=== PATIENT | female | born 1985 | race Caucasian/White ===

== ENCOUNTER 2017-06-22 10:16 | Emergency (ER) | payer OTHER, MEDICAID ==
[2017-06-22 11:05] VITALS: BP 111/75
--- NOTE | 2017-06-22 11:56 | UC ---
FLU HPI - HPI Summary HPI Summary: 5 days of fever cough and body aches - History of Current Complaint Chief Complaint: UCGeneralIllness Stated Complaint: FLU SYMPTOMS Time Seen by Provider: 06/22/17 11:45 Hx Obtained From: Patient Hx Last Menstrual Period: 06/02/17 ?: No Onset/Duration: Sudden Onset, Lasting Days - 5, Still Present Severity Currently: Moderate Severity Initially: Moderate Pain Intensity: 6 Pain Scale Used: 0-10 Numeric Associated Signs & Symptoms: Positive: Fever, Myalgia, Cough, Headache - Allergy/Home Medications Allergies/Adverse Reactions: Allergies Allergy/AdvReac Type Severity Reaction Status Date / Time No Known Allergies Allergy Verified 06/22/17 11:06 PMH/Surg Hx/FS Hx/Imm Hx Previously Healthy: No Psychological History: Bipolar Disorder Other History Of: Negative For: Anticoagulant Therapy - Surgical History Surgical History: Yes Surgery Procedure, Year, and Place: 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 No FHx of family schizophrenia. No FHx of mood disorders. No FHx of bipolar disorder. No FHx of anxiety disorder. No FHx of depression. No FHx of Family Depression. No FHx of alcohol abuse - Social History Occupation: Employed Full-time Lives: With Family Alcohol Use: Occasionally Substance Use Type: None Smoking Status (MU): Never Smoked Tobacco - Immunization History Most Recent Influenza Vaccination: Unknown Most Recent Tetanus Shot: Unsure Most Recent Pneumonia Vaccination: Never Review of Systems Constitutional: Fever, Chills, Fatigue Skin: Negative Eyes: Negative ENT: Ear Ache, Nasal Discharge Respiratory: Cough Cardiovascular: Negative Gastrointestinal: Negative Genitourinary: Negative Motor: Negative Neurovascular: Negative Musculoskeletal: Arthralgia, Myalgia Neurological: Negative Psychological: Negative Is Patient Immunocompromised?: No All Other Systems Reviewed And Are Negative: Yes Physical Exam Triage Information Reviewed: Yes Appearance: No Pain Distress, Well-Nourished, Ill-Appearing Vital Signs: Initial Vital Signs Temp 99.6 F 06/22/17 11:01 Pulse 90 06/22/17 11:01 Resp 18 06/22/17 11:01 BP 111/75 06/22/17 11:01 Pulse Ox 99 06/22/17 11:01 Vital Signs Reviewed: Yes Eye Exam: Normal Eyes: Positive: Conjunctiva Clear ENT Exam: Normal ENT: Positive: Normal ENT inspection, Hearing grossly normal, Pharynx normal, TMs normal, Uvula midline. Negative: Nasal congestion, Nasal drainage, Tonsillar swelling, Tonsillar exudate, Trismus, Muffled voice, Hoarse voice Dental Exam: Normal Neck exam: Normal Neck: Positive: Supple, Nontender, No Lymphadenopathy Respiratory Exam: Normal Respiratory: Positive: Chest non-tender, Lungs clear, Normal breath sounds, No respiratory distress, No accessory muscle use Cardiovascular Exam: Normal Cardiovascular: Positive: RRR, No Murmur, Pulses Normal, Brisk Capillary Refill Musculoskeletal Exam: Normal Musculoskeletal: Positive: Strength Intact, ROM Intact, No Edema Neurological Exam: Normal Neurological: Positive: Alert, Muscle Tone Normal Psychological Exam: Normal Skin Exam: Normal Diagnostics - Laboratory Diagnostic Studies Completed/Ordered: Influenza A(+), Influenza B(-), RST (-) Flu Course/Dx - Course Course Of Treatment: increase fluids, tylenol, ibuprofen robitussin and codiene for cough, return or follow with pcp prn - Differential Dx/Diagnosis Provider Diagnoses: Influenza A Discharge - Discharge Plan Condition: Stable Disposition: HOME Prescriptions: guaiFENesin/CODIEN 100MG-10MG* [Robitussin AC 100Mg-10Mg*] 5 - 10 ml PO Q4H PRN #120 udc MDD 40 PRN Reason: cough Patient Education Materials: Influenza (ED) Forms: *Work Release Referrals: Nadia Galdamez MD [Primary Care Provider] - If Needed
== END 2017-06-22 12:10 | disposition home or self-care (01) ==
LOC: UCEAST 10:16
DX: J10.1 Influenza due to other identified influenza virus with other respiratory manifestations (principal); F31.9 Bipolar disorder, unspecified
CPT/HCPCS: 87502; 87651; 99212; G0463

== ENCOUNTER 2018-01-08 13:58 | Emergency (ER) | payer OTHER, MEDICAID ==
[2018-01-08 14:12] VITALS: BP 118/78
--- NOTE | 2018-01-08 16:15 | UC ---
Complaint Female HPI - HPI Summary HPI Summary: Patient is an otherwise healthy 32-year-old female presenting to the with complaint of right-sided abdominal tenderness and urgency of urination 2 days. She has never had a UTI before. Denies any childbearing. She states this is never happened to her before. Denies any fevers, sweats, chills, nausea, vomiting. Denies any constipation or diarrhea. She states she has been feeling otherwise well. History of ovarian cyst on the ipsilateral side and history of ruptured ovarian cyst. She states pain is currently a 2/10 intermittent and not worse with positioning. She has not tried any medications for release. She relates this to be a UTI. Denies any suprapubic tenderness or burning with urination. Denies any frequency of urination. Denies any back pain. - History Of Current Complaint Chief Complaint: UCGU Stated Complaint: URINARY ISSUE RESP ISSUE Time Seen by Provider: 01/08/18 14:12 Hx Obtained From: Patient Hx Last Menstrual Period: 12/29/17 ?: No Onset/Duration: Sudden Onset Timing: Constant Severity Initially: Mild Severity Currently: Mild Pain Intensity: 7 Pain Scale Used: 0-10 Numeric Character: Dull Aggravating Factor(s): Nothing Alleviating Factor(s): Nothing Associated Signs And Symptoms: Negative: Fever, Back Pain, Vaginal Bleeding/ Discharge, Vaginal Discharge, Nausea - Risk Factors Ectopic Risk Factor: Negative Ovarian Torsion Risk Factor: Negative - Allergies/Home Medications Allergies/Adverse Reactions: Allergies Allergy/AdvReac Type Severity Reaction Status Date / Time No Known Allergies Allergy Verified 01/08/18 14:05 PMH/Surg Hx/FS Hx/Imm Hx Previously Healthy: Yes Other History Of: Negative For: Anticoagulant Therapy - Surgical History Surgical History: Yes Surgery Procedure, Year, and Place: 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 No FHx of family schizophrenia. No FHx of mood disorders. No FHx of bipolar disorder. No FHx of anxiety disorder. No FHx of depression. No FHx of Family Depression. No FHx of alcohol abuse - Social History Occupation: Employed Full-time Alcohol Use: Occasionally Substance Use Type: None Smoking Status (MU): Never Smoked Tobacco - Immunization History Most Recent Influenza Vaccination: Unknown Most Recent Tetanus Shot: Unsure Most Recent Pneumonia Vaccination: Never Review of Systems Constitutional: Negative Skin: Negative Respiratory: Negative Cardiovascular: Negative Gastrointestinal: Abdominal Pain - RLQ Genitourinary: Urgency Motor: Negative Neurovascular: Negative Neurological: Negative Is Patient Immunocompromised?: No All Other Systems Reviewed And Are Negative: Yes Physical Exam Triage Information Reviewed: Yes Appearance: Well-Appearing, Well-Nourished Vital Signs: Initial Vital Signs Temp 98.5 F 01/08/18 14:07 Pulse 80 01/08/18 14:07 Resp 16 01/08/18 14:07 BP 118/78 01/08/18 14:07 Pulse Ox 99 01/08/18 14:07 Vital Signs Reviewed: Yes Eye Exam: Normal Eyes: Positive: Conjunctiva Clear Neck exam: Normal Neck: Positive: Supple Respiratory Exam: Normal Respiratory: Positive: Chest non-tender Cardiovascular Exam: Normal Cardiovascular: Positive: RRR Abdomen Description: Positive: Other: - RLQ pain on deep palpation only Musculoskeletal Exam: Normal Musculoskeletal: Positive: Strength Intact Psychological Exam: Normal Psychological: Positive: Normal Response To Family Skin Exam: Normal Complaint Female Dx - Course Course Of Treatment: During the course of treatment, the patient is evaluated for right-sided abdominal tenderness. Denies any fevers, sweats, chills. On physical examination, negative Rovsing sign. No tenderness over McBurney's point on light palpation, however deep palpation presents slight tenderness. Denies any nausea or vomiting. Discussed at length with the patient symptoms of appendicitis versus ruptured ovarian cyst. We'll she has had an ovarian cyst to the right side, I do not believe this to be an ectopic as patient has had her menses 3 days ago and she is non-severe pain. Also symptoms have remained for 2 days. I do not believe this to be a ruptured ovarian cyst due to the 2 out of 10 pain scale which has remained constant. 2 bouts of near incontinence with urgency is possibly positive for weak abdominal muscles without week pelvic floor muscles. UA obtained which is negative for leukocytes and WBCs. Negative for rbc's. She will go to the ED if she develops fevers, sweats, chills, worsening right-sided lower quadrant pain. She 'll follow-up with her [employer] next week regarding her ovarian cyst as well as any concerns for urgency of urination. - Differential Dx/Diagnosis Differential Diagnosis/HQI/PQRI: Ectopic, Ovarian Cyst, Ovarian Torsion, Renal Colic, Tubo-ovarian Abscess, Urinary Tract Infection Provider Diagnoses: Right lower quadrant pain Discharge - Sign-Out/Discharge Documenting (check all that apply): Patient Departure All imaging exams completed and their final reports reviewed: No Studies - Discharge Plan Condition: Stable Disposition: HOME Referrals: Nadia Galdamez MD [Primary Care Provider] - Additional Instructions: Himalayan salt lamp or screen protector Please go to the ED if you develop any fevers or worsening RLQ pain Please follow up with your OBGYN Moist heat over the area will help with discomfort Ibuprofen 600mg three times daily x 2-3 days will also help with discomfort - Billing Disposition and Condition Condition: STABLE Disposition: Home
== END 2018-01-08 14:35 | disposition home or self-care (01) ==
LOC: UCEAST 13:58
DX: R10.31 Right lower quadrant pain (principal); R39.15 Urgency of urination
CPT/HCPCS: 81003; 99211; G0463

== ENCOUNTER 2018-01-20 23:22 | Emergency (ER) | payer OTHER, MEDICAID ==
--- NOTE | 2018-01-21 00:18 | ED ---
Psychiatric Complaint - HPI Summary HPI Summary: 32 year old F presenting to [facility] complains of intermittent anxiety attacks since two days ago. Symptoms aggravated by nothing. Symptoms alleviated by nothing. Patient reports insomnia x6 days. She denies auditory hallucinations, SI/HI, and paranoia. - History Of Current Complaint Chief Complaint: EDMentalHealth Time Seen by Provider: 01/21/18 00:00 Hx Obtained From: Patient Hx Last Menstrual Period: 12/29/17 Onset/Duration: Lasting Days - 2, Still Present Timing: Intermittent Episode Lasting Aggravating Factor(s): Nothing Alleviating Factor(s): Nothing Has Suicidal: Denies: Thoughts Has Homicidal: Denies: Thoughts - Allergies/Home Medications Allergies/Adverse Reactions: Allergies Allergy/AdvReac Type Severity Reaction Status Date / Time No Known Allergies Allergy Verified 01/08/18 14:05 PMH/Surg Hx/FS Hx/Imm Hx Previously Healthy: No Endocrine/Hematology History: Denies: Hx Anticoagulant Therapy, Hx Diabetes, Hx Thyroid Disease Cardiovascular History: Denies: Hx Hypertension Respiratory History: Denies: Hx Asthma, Hx Chronic Obstructive Pulmonary Disease (COPD) GI History: Denies: Hx Ulcer Musculoskeletal History: Denies: Hx Arthritis Neurological History: Reports: Hx Migraine Denies: Hx Dementia, Hx Developmental Delay, Hx Headaches, Hx Seizures, Hx Spinal Cord Injury, Hx Transient Ischemic Attacks (TIA), Other Neuro Impairments /Disorders Psychiatric History: Reports: Hx Depression, Hx Post Traumatic Stress Disorder, Hx Inpatient Treatment, Hx Community Mental Health Tx, Hx Bipolar Disorder, Hx Suicide Attempt, Hx of Violent Episodes Against Others Denies: Hx Anxiety, Hx Attention Deficit Hyperactivity Disorder, Hx Eating Disorder, Hx Panic Disorder, Hx Schizophrenia, Hx Substance Abuse, Other Psychiatric Issues/Disorders - Cancer History Cancer Type, Location and Year: tumor removed R breast benign Hx Chemotherapy: No Hx Radiation Therapy: No - Surgical History Surgery Procedure, Year, and Place: Tumor removed from right breast - benign- 2011 Hx Anesthesia Reactions: No - Immunization History Date of Tetanus Vaccine: unknown Infectious Disease History: No Infectious Disease History: Denies: Hx Clostridium Difficile, Hx Hepatitis, Hx Human Immunodeficiency Virus (HIV), Hx of Known/Suspected MRSA, Hx Shingles, Hx Tuberculosis, Hx Known/ Suspected VRE, Hx Known/Suspected VRSA, History Other Infectious Disease, Traveled Outside the [place] in Last 30 Days - Family History Known Family History: Negative: Hypertension Family History: FHx of family psychotic disorders. No FHx of family schizophrenia. No FHx of mood disorders. No FHx of bipolar disorder. No FHx of anxiety disorder. No FHx of depression. No FHx of Family Depression. No FHx of alcohol abuse - Social History Alcohol Use: Occasionally Hx Substance Use: No Substance Use Type: Reports: None Hx Tobacco Use: No Smoking Status (MU): Never Smoked Tobacco Review of Systems Positive: Other - anxiety attacks, insomnia; NEGATIVE: auditory hallucinations, SI/HI, paranoia All Other Systems Reviewed And Are Negative: Yes Physical Exam - Summary Physical Exam Summary: VITAL SIGNS: Reviewed. GENERAL: Patient is a well-developed and nourished female who is lying comfortable in the stretcher. Patient is not in any acute respiratory distress. HEAD AND FACE: No signs of trauma. No ecchymosis, hematomas or skull depressions. No sinus tenderness. EYES: PERRLA, EOMI x 2, No injected conjunctiva, no nystagmus. EARS: Hearing grossly intact. Ear canals and tympanic membranes are within normal limits. MOUTH: Oropharynx within normal limits. NECK: Supple, trachea is midline, no adenopathy, no JVD, no carotid bruit, no c- spine tenderness, neck with full ROM. CHEST: Symmetric, no tenderness at palpation LUNGS: Clear to auscultation bilaterally. No wheezing or crackles. CVS: Regular rate and rhythm, S1 and S2 present, no murmurs or gallops appreciated. ABDOMEN: Soft, non-tender. No signs of distention. No rebound no guarding, and no masses palpated. Bowel sounds are normal. EXTREMITIES: FROM in all major joints, no edema, no cyanosis or clubbing. NEURO: Alert and oriented x 3. No acute neurological deficits. Speech is normal and follows commands. SKIN: Dry and warm PSYCH: patient is anxious. she denies HI/SI Triage Information Reviewed: Yes Vital Signs On Initial Exam: Initial Vitals Temp Pulse Resp BP Pulse Ox 98.2 F 82 16 152/82 99 01/20/18 23:25 01/20/18 23:25 01/20/18 23:25 01/20/18 23:25 01/20/18 23:25 Vital Signs Reviewed: Yes Diagnostics - Vital Signs Vital Signs Temp Pulse Resp BP Pulse Ox 09/08/18 23:25 98.2 F 82 16 152/82 99 - Laboratory Result Diagrams: 01/21/18 00:23 01/21/18 00:23 Lab Statement: Any lab studies that have been ordered have been reviewed, and results considered in the medical decision making process. Course/Dx - Course Course Of Treatment: 32 year old F presenting to [facility] complains of intermittent anxiety attacks since two days ago. Patient will be signed out to Dr. Tubbs, awaiting MHE, pending dispo. - Differential Dx/Clinical Impression Provider Diagnosis: Manic behavior Discharge - Sign-Out/Discharge Documenting (check all that apply): Sign-Out Patient Signing out patient TO: Robert Tubbs - awaiting MHE, pending dispo. - Discharge Plan Condition: Stable Disposition: HOME Referrals: Nadia Galdamez MD [Primary Care Provider] - - Billing Disposition and Condition Condition: STABLE Disposition: Home - Attestation Statements Document Initiated by Scribe: Yes Documenting Scribe: Brenda Whitaker Provider For Whom Scribe is Documenting (Include Credential): Deon Powell MD Scribe Attestation: Brenda Watts, scribed for Deon Powell MD on 02/09/18 at 1126. Scribe Documentation Reviewed: Yes Provider Attestation: The documentation as recorded by the Brenda ocasio accurately reflects the service I personally performed and the decisions made by Tish johnson MD
[2018-01-21 00:29] LABS: ABS Basophils 0 10^3/ul (0-0.2); ABS Eosinophils 0.3 10^3/ul (0-0.6); ABS Monocytes 0.9 10^3/ul (0-0.8); ABS Neutrophils 7.1 10^3/ul (1.5-7.7); ABS Nucleated RBC 0 10^3/ul; Eosinophil % 2.6 % (0-6); Hematocrit 36 % (35-47); Hemoglobin 12.6 g/dl (12.0-16.0); Lymphocyte % 19.9 % (25-47); Mean Corpuscular HGB Conc 35 g/dl (31-36); Mean Corpuscular Hemoglobin 29 pg (27-31); Mean Corpuscular Volume 83 fL (80-97); Mean Platelet Volume 7.7 um3 (7.4-10.4); Nucleated Red Blood Cells % 0; Platelet Count 267 10^3/ul (150-450); Red Blood Count 4.32 10^6/ul (4.00-5.40); Red Cell Distribution Width 13 % (10.5-15); White Blood Count 10.3 10^3/ul (3.5-10.8)
[2018-01-21 00:47] LABS: EGFR Non-African American 84.5 (>60)
[2018-01-21 00:52] LABS: Lithium 0.93 mmol/L (0.6-1.2)
[2018-01-21 01:48] LABS: Urine Appearance Clear; Urine Blood Negative (Negative); Urine Color Colorless; Urine Ketones Negative (Negative); Urine Protein Negative (Negative); Urine Urobilinogen Negative (Negative)
[2018-01-21 09:49] LABS: Urine Appearance Clear; Urine Blood Negative (Negative); Urine Color Colorless; Urine Ketones Trace (Negative); Urine Protein Negative (Negative); Urine Specific Gravity 1.001 (1.010-1.030); Urine Urobilinogen Negative (Negative)
[2018-01-21 13:00] VITALS: BP 152/82
--- NOTE | 2018-01-21 18:37 | ED ---
Progress - Progress Note Progress Note: The patient was signed out from Dr. Powell on shift change awaiting MHE. After the MHE by Dr. Davey the patient was deemed stabled to be discharged home. The patient will discharged by mental health and f/u and F & C services. - Consult/PCP Time Called: 03:00 Course/Dx - Diagnoses Provider Diagnoses: Manic behavior Discharge - Sign-Out/Discharge Documenting (check all that apply): Patient Departure, Receiving Sign-Out Receiving patient FROM: Deon Powell - Discharge Plan Condition: Stable Disposition: HOME Referrals: Nadia Galdamez MD [Primary Care Provider] - - Billing Disposition and Condition Condition: STABLE Disposition: Home - Attestation Statements Document Initiated by Scribe: Yes Documenting Scribe: Javon Roman Provider For Whom Greg is Documenting (Include Credential): Robert Tubbs MD Scribe Attestation: Javon Watts , scribed for Robert Tubbs MD on 01/21/18 at 1921. Scribe Documentation Reviewed: Yes Provider Attestation: The documentation as recorded by the Javon ocasio accurately reflects the service I personally performed and the decisions made by me, Robert Tubbs MD
== END 2018-01-21 11:00 | disposition home or self-care (01) ==
LOC: ED 23:22
DX: F30.9 Manic episode, unspecified (principal)
CPT/HCPCS: 36415; 80053; 80178; 80307; 80320; 80329; 81003; 84443; 84702; 85025; 99284; G0480

== ENCOUNTER 2018-09-28 15:12 | Emergency (ER) | payer OTHER, MEDICAID ==
[2018-09-28 15:24] VITALS: BP 119/77
--- NOTE | 2018-09-28 15:44 | UC ---
Headache HPI - HPI Summary HPI Summary: 33-year-old female with a history of bipolar disorder, migraine headaches presents with headache and blurred vision that began this morning. The headache is much better now but she is very anxious given that she is 13 weeks . She has concerns that she could possibly have preeclampsia. She does have good follow-up with Dr. Dye her [employer]. She denies any history of elevated blood pressure or lower extremity edema. She has no symptoms at present. She is at age 33 with a due date of April 05. Her last menstrual period was June 29. - History Of Current Complaint Chief Complaint: UCHeadache Stated Complaint: HEADACHE Time Seen by Provider: 09/28/18 15:16 Hx Obtained From: Patient, Family/Supervisor Dried Yeast Hx Last Menstrual Period: 13 weeks ago Pain Intensity: 5 - Allergies/Home Medications Allergies/Adverse Reactions: Allergies Allergy/AdvReac Type Severity Reaction Status Date / Time No Known Allergies Allergy Verified 09/28/18 15:17 Home Medications: Home Medications Lurasidone(*) [Latuda] 40 mg PO DAILY 09/28/18 [History Confirmed 09/28/18] PMH/Surg Hx/FS Hx/Imm Hx Psychological History: Anxiety, Bipolar Disorder Other History Of: Negative For: Anticoagulant Therapy - Surgical History Surgical History: Yes Surgery Procedure, Year, and Place: 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 No FHx of family schizophrenia. No FHx of mood disorders. No FHx of bipolar disorder. No FHx of anxiety disorder. No FHx of depression. No FHx of Family Depression. No FHx of alcohol abuse - Social History Occupation: Unemployed Lives: With Family Alcohol Use: None Substance Use Type: None Smoking Status (MU): Never Smoked Tobacco - Immunization History Most Recent Influenza Vaccination: Unknown Most Recent Tetanus Shot: Unsure Most Recent Pneumonia Vaccination: Never Review of Systems All Other Systems Reviewed And Are Negative: Yes Constitutional: Negative: Fever Skin: Negative: Rash Eyes: Positive: Blurred Vision. Negative: Diplopia ENT: Positive: Negative Respiratory: Positive: Negative Cardiovascular: Positive: Negative Gastrointestinal: Negative: Abdominal Pain, Vomiting, Nausea Musculoskeletal: Negative: Edema Neurological: Positive: Headache Physical Exam Triage Information Reviewed: Yes Appearance: Well-Appearing, No Pain Distress Vital Signs: Initial Vital Signs Temp 98.5 F 09/28/18 15:18 Pulse 104 09/28/18 15:18 Resp 18 09/28/18 15:18 BP 119/77 09/28/18 15:18 Pulse Ox 98 09/28/18 15:18 Vital Signs Reviewed: Yes Eyes: Positive: Conjunctiva Clear, Other: - Pupils equal round and reactive, globes are soft, temporal arteries are nontender ENT: Positive: Normal ENT inspection Neck: Positive: Supple, Nontender Respiratory: Positive: Lungs clear Cardiovascular: Positive: RRR Abdomen Description: Positive: Nontender, Other: - Appears slightly gravid without palpable fundus Musculoskeletal: Positive: No Edema Neurological Exam: Normal Psychological Exam: Normal Headache Course/Dx - Course Course Of Treatment: Patient is well-appearing with a history of migraine headaches. She is still on her bipolar medication including lithium at the recommendations of her doctors. She is off her Klonopin. She was given hydroxyzine to use as needed for anxiety and prescribed promethazine as needed for headaches. - Differential Dx/Diagnosis Provider Diagnosis: Second trimester , Migraine headache without aura, Anxiety disorder Discharge - Sign-Out/Discharge Documenting (check all that apply): Patient Departure All imaging exams completed and their final reports reviewed: No Studies - Discharge Plan Condition: Improved Disposition: HOME Prescriptions: hydrOXYzine HCL TAB* [Atarax 25 MG TAB*] 25 mg PO TID PRN #30 tab PRN Reason: anxiety/headache Promethazine TAB* [Phenergan Tab*] 25 mg PO Q8H PRN #20 tab PRN Reason: headache/nausea Patient Education Materials: Migraine Headache (ED), Anxiety (ED) Referrals: Nadia Galdamez MD [Primary Care Provider] - Cody Dey MD [Medical Doctor] - Additional Instructions: Follow-up with your [employer] -- they will do monitoring at regular intervals to ensure that he did not have preeclampsia. The prescribed medication promethazine can be taken along with the other prescribed medication hydroxyzine if headaches are severe. Also good hydration with water and caffeine may help headaches. Hydroxyzine alone can be used for anxiety. Return if worse, new symptoms or other concerns. - Billing Disposition and Condition Condition: IMPROVED Disposition: Home
== END 2018-09-28 15:40 | disposition home or self-care (01) ==
LOC: UCEAST 15:12
DX: O26.892 Other specified pregnancy related conditions, second trimester (principal); G43.009 Migraine without aura, not intractable, without status migrainosus; F41.9 Anxiety disorder, unspecified; Z3A.13 13 weeks gestation of pregnancy; F31.9 Bipolar disorder, unspecified
CPT/HCPCS: 99212; G0463

== ENCOUNTER 2018-12-02 12:14 | Emergency (ER) | payer OTHER, MEDICAID ==
[2018-12-02 12:22] VITALS: BP 106/68
--- NOTE | 2018-12-02 12:42 | UC ---
Skin Complaint HPI - HPI Summary HPI Summary: pain swelling redness-medial aspect posterior right lower leg near knee- swelling in right lower leg-teder above and below area--is - History of Current Complaint Chief Complaint: UCRash Time Seen by Provider: 12/02/18 12:20 Stated Complaint: RASH BEHIND RT KNEE Hx Obtained From: Patient Hx Last Menstrual Period: 13 weeks ago ?: No Onset/Duration: Sudden Onset, Lasting Days, Worse Since - past 24 hours Pain Intensity: 7 Pain Scale Used: 0-10 Numeric Location: Discrete Character: Pain, Redness Aggravating Factor(s): Nothing Alleviating Factor(s): Nothing Associated Signs & Symptoms: Positive: Negative - Allergy/Home Medications Allergies/Adverse Reactions: Allergies Allergy/AdvReac Type Severity Reaction Status Date / Time No Known Allergies Allergy Verified 12/02/18 12:22 PMH/Surg Hx/FS Hx/Imm Hx Previously Healthy: No Psychological History: Bipolar Disorder Other History Of: Negative For: Anticoagulant Therapy - Surgical History Surgical History: Yes Surgery Procedure, Year, and Place: 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 No FHx of family schizophrenia. No FHx of mood disorders. No FHx of bipolar disorder. No FHx of anxiety disorder. No FHx of depression. No FHx of Family Depression. No FHx of alcohol abuse - Social History Occupation: Employed Full-time Lives: With Family Alcohol Use: None Substance Use Type: None Smoking Status (MU): Never Smoked Tobacco - Immunization History Most Recent Influenza Vaccination: Unknown Most Recent Tetanus Shot: Unsure Most Recent Pneumonia Vaccination: Never Review of Systems All Other Systems Reviewed And Are Negative: Yes Constitutional: Positive: Negative Skin: Positive: Other - erythema right lower leg Eyes: Positive: Negative ENT: Positive: Negative Respiratory: Positive: Negative Cardiovascular: Positive: Negative Gastrointestinal: Positive: Negative Genitourinary: Positive: Negative Motor: Positive: Negative Neurovascular: Positive: Negative Musculoskeletal: Positive: Negative Neurological: Positive: Negative Psychological: Positive: Negative Is Patient Immunocompromised?: No Physical Exam Triage Information Reviewed: Yes Appearance: Well-Appearing, No Pain Distress, Well-Nourished Vital Signs: Initial Vital Signs Temp 98 F 12/02/18 12:19 Pulse 75 12/02/18 12:19 Resp 17 12/02/18 12:19 BP 106/68 12/02/18 12:19 Pulse Ox 100 12/02/18 12:19 Vital Signs Reviewed: No Eye Exam: Normal Eyes: Positive: Conjunctiva Clear ENT Exam: Normal ENT: Positive: Normal ENT inspection, Hearing grossly normal. Negative: Trismus , Muffled voice, Hoarse voice Neck exam: Normal Neck: Positive: Supple, Nontender, No Lymphadenopathy Respiratory Exam: Normal Respiratory: Positive: Chest non-tender, No respiratory distress, No accessory muscle use Cardiovascular Exam: Normal Cardiovascular: Positive: RRR, Pulses Normal, Brisk Capillary Refill Musculoskeletal Exam: Normal Musculoskeletal: Positive: Strength Intact, ROM Intact, Edema @ - right lower leg Neurological Exam: Normal Neurological: Positive: Alert, Muscle Tone Normal Psychological Exam: Normal Skin Exam: Other Skin: Positive: Other - large erthemic tender area back of right knee/lower leg- --some swelling began last night right foot Course/Dx - Course Course Of Treatment: discussed likely differentials with client Lyme, cellulitis, local rx to insect bite,thrombophlebitis--agreed to go to ED for US of lower leg to r/o DVT possibility - Diagnoses Provider Diagnosis: Right leg pain Discharge - Sign-Out/Discharge Documenting (check all that apply): Patient Departure All imaging exams completed and their final reports reviewed: No Studies - Discharge Plan Condition: Stable Disposition: HOME-RECOMMEND TO ED Patient Education Materials: Leg Edema (ED) Referrals: Nadia Galdamez MD [Primary Care Provider] - If Needed - Billing Disposition and Condition Condition: STABLE Disposition: Home-Recommend to ED
== END 2018-12-02 12:50 | disposition home health service (06) ==
LOC: UCEAST 12:14
DX: O26.899 Other specified pregnancy related conditions, unspecified trimester (principal); M79.604 Pain in right leg; Z3A.00 Weeks of gestation of pregnancy not specified
CPT/HCPCS: 99212; G0463

== ENCOUNTER → 2018-12-02 13:43 | Emergency (ER) | payer OTHER, MEDICAID ==
[~2018-12-02 13:43] MED LIST: predniSONE TAB* 10 MG PO ONE
--- NOTE | 2018-12-02 17:17 | ED ---
Skin Complaint - HPI Summary HPI Summary: Pt is a 33 y/o F presenting to the ED with a chief complaint of a rash on the back of her R knee first onset a couple of days ago. She states it was pruritic , erythematous, and the area developed blisters with purulence. She put Neosporin and Hydrocortisone on it, which seemed to help initially, but it is now worse. She went to who sent her here to r/o blood clot. She denies CP, SOB, vaginal bleeding, or discharge. She notes that she had a tick bite a couple of months ago on her L inner thigh, but it resolved without forming a bullseye. The pt is currently 22 weeks . Vital signs while in room: BP 127/85, HR 74bpm, SaO2 99% on room air. Home Medications Medication Instructions Recorded Confirmed Type Acetaminophen [Tylenol Extra 500 mg PO Q6H PRN 12/02/18 12/02/18 History Strength] [place] Carbonate ER (NF) 900 mg PO BEDTIME 12/02/18 12/02/18 History Lurasidone(*) [Latuda] 40 mg PO BEDTIME 12/02/18 12/02/18 History Pnv No.95/Ferrous Fum/Folic AC 1 tab PO DAILY 12/02/18 12/02/18 History [ Vitamin/Iron 28-0.8 mg] - History of Current Complaint Chief Complaint: EDRashSkinAbscess Time Seen by Provider: 12/02/18 16:31 Stated Complaint: POSS SPIDER BITE 22 WKS PREG PER PT Hx Obtained From: Patient Hx Last Menstrual Period: 13 weeks ago Onset/Duration: Started Days Ago, Still Present Skin Exposure Onset/Duration: Days Ago Timing: Constant, Lasting Days Onset Severity: Moderate Current Severity: Severe Pain Intensity: 7 Pain Scale Used: 0-10 Numeric Skin Location: Leg Character: Pruritus, Redness, Raised, Painful Aggravating Symptom(s): Touch Alleviating Symptom(s): Nothing Associated Signs & Symptoms: Rash Related History: Insect Bite/Sting - Additional Pertinent History Primary Care Physician: SUREKHA - Allergy/Home Medications Allergies/Adverse Reactions: Allergies Allergy/AdvReac Type Severity Reaction Status Date / Time No Known Allergies Allergy Verified 12/02/18 13:49 Home Medications: Home Medications Acetaminophen [Tylenol Extra Strength] 500 mg PO Q6H PRN 12/02/18 [History Confirmed 12/02/18] [place] Carbonate ER (NF) 900 mg PO BEDTIME 12/02/18 [History Confirmed 12/02/18 ] Lurasidone(*) [Latuda] 40 mg PO BEDTIME 12/02/18 [History Confirmed 12/02/18] Pnv No.95/Ferrous Fum/Folic AC [ Vitamin/Iron 28-0.8 mg] 1 tab PO DAILY 12/02/18 [History Confirmed 12/02/18] PMH/Surg Hx/FS Hx/Imm Hx Previously Healthy: Yes Endocrine/Hematology History: Denies: Hx Anticoagulant Therapy, Hx Diabetes, Hx Thyroid Disease Cardiovascular History: Denies: Hx Hypertension Respiratory History: Denies: Hx Asthma, Hx Chronic Obstructive Pulmonary Disease (COPD) GI History: Denies: Hx Ulcer Musculoskeletal History: Denies: Hx Arthritis Neurological History: Reports: Hx Migraine Denies: Hx Dementia, Hx Developmental Delay, Hx Headaches, Hx Seizures, Hx Spinal Cord Injury, Hx Transient Ischemic Attacks (TIA), Other Neuro Impairments /Disorders Psychiatric History: Reports: Hx Depression, Hx Post Traumatic Stress Disorder, Hx Inpatient Treatment, Hx Community Mental Health Tx, Hx Bipolar Disorder, Hx Suicide Attempt, Hx of Violent Episodes Against Others Denies: Hx Anxiety, Hx Attention Deficit Hyperactivity Disorder, Hx Eating Disorder, Hx Panic Disorder, Hx Schizophrenia, Hx Substance Abuse, Other Psychiatric Issues/Disorders - Cancer History Cancer Type, Location and Year: tumor removed R breast benign Hx Chemotherapy: No Hx Radiation Therapy: No - Surgical History Surgery Procedure, Year, and Place: Tumor removed from right breast - benign- 2012 Hx Anesthesia Reactions: No - Immunization History Date of Tetanus Vaccine: unknown Infectious Disease History: No Infectious Disease History: Denies: Hx Clostridium Difficile, Hx Hepatitis, Hx Human Immunodeficiency Virus (HIV), Hx of Known/Suspected MRSA, Hx Shingles, Hx Tuberculosis, Hx Known/ Suspected VRE, Hx Known/Suspected VRSA, History Other Infectious Disease, Traveled Outside the [place] in Last 30 Days - Family History Known Family History: Positive: Other - Unknown if preeclampsia Negative: Hypertension Family History: FHx of family psychotic disorders. No FHx of family schizophrenia. No FHx of mood disorders. No FHx of bipolar disorder. No FHx of anxiety disorder. No FHx of depression. No FHx of Family Depression. No FHx of alcohol abuse - Social History Alcohol Use: None Hx Substance Use: No Substance Use Type: Reports: None Hx Tobacco Use: No Smoking Status (MU): Never Smoked Tobacco Review of Systems Negative: Chest Pain Negative: Shortness Of Breath Negative: discharge, other - vaginal bleeding Positive: Edema Positive: Rash All Other Systems Reviewed And Are Negative: Yes Physical Exam - Summary Physical Exam Summary: Appearance: , fundus umbilicus c/w dates, well-appearing, moderate pain distress, well-nourished Skin: Warm, color reflects adequate perfusion, erythematous rash on ventral surface of the R knee that is 3cm wide and comes around the mid-knee into the popliteal space. Head: Normal Head/Face inspection, atraumatic Eyes: Conjunctiva clear ENT: Normal inspection Neck: Supple, no nodes, no JVD Respiratory: Lungs clear, normal breath sounds, no respiratory distress Cardio: RRR, No murmur, pulses normal, brisk capillary refill Abdomen: Soft, able to feel movement with abd palpation, nontender Bowel sounds: Present Musculoskeletal: Strength Intact/ROM intact, no calf tenderness, no edema. Psychological: Normal Neuro: Alert, muscle tone normal, no focal deficit Triage Information Reviewed: Yes Vital Signs On Initial Exam: Initial Vitals Temp Pulse Resp BP Pulse Ox 98.7 F 75 16 127/86 99 12/02/18 13:46 12/02/18 13:46 12/02/18 13:46 12/02/18 13:46 12/02/18 13:46 Vital Signs Reviewed: Yes Diagnostics - Vital Signs Vital Signs Temp Pulse Resp BP Pulse Ox 12/02/18 16:38 73 127/85 99 12/02/18 16:03 75 117/64 97 12/02/18 13:46 98.7 F 75 16 127/86 99 - Laboratory Result Diagrams: 12/02/18 17:13 12/02/18 17:13 Lab Statement: Any lab studies that have been ordered have been reviewed, and results considered in the medical decision making process. - Ultrasound Venous Doppler Study Ultrasound Interpretation Completed By: Radiologist Summary of Ultrasound Findings: NO EVIDENCE OF DEEP VENOUS THROMBOSIS IS IDENTIFIED. ED physician has reviewed this report. Course/Dx - Course Course Of Treatment: Pt is a 33 y/o F presenting to the ED with a chief complaint of a rash on the back of her R knee first onset a couple of days ago. She states it was pruritic, erythematous, and the area developed blisters with purulence. She denies CP, SOB, vaginal bleeding, or discharge. She notes that she had a tick bite a couple of months ago on her L inner thigh, but it resolved without forming a bullseye. The pt is currently 22 weeks . Vital signs while in room: BP 127/85, HR 74bpm, SaO2 99% on room air. On exam, there is an erythematous rash on ventral surface of the R knee that is 3cm wide and comes around the mid-knee into the popliteal space. Venous Dopppler Study shows: NO EVIDENCE OF DEEP VENOUS THROMBOSIS IS IDENTIFIED. Pt will be d/c'ed with dx of dermatitis and instruction to f/u with Dr. Simpson. She is stable and agreeable with this plan. - Diagnoses Provider Diagnoses: Dermatitis Discharge - Sign-Out/Discharge Documenting (check all that apply): Patient Departure Patient Received Moderate/Deep Sedation with Procedure: No - Discharge Plan Condition: Stable Disposition: HOME Referrals: Nadia Galdamez MD [Primary Care Provider] - Danni Simpson [Medical Doctor] - Additional Instructions: You were given Prednisone 20mg in the emergency department today. Please take this medication as instructed for the next 3 days, and follow up with Dr. Simpson within the next 2 days. Return to the emergency department with any new or worsening symptoms. - Attestation Statements Document Initiated by Shantanuibneetu: Yes Documenting Scribe: Desi Mendoza Provider For Whom Shantanuibneetu is Documenting (Include Credential): Dr. Quyen Rivera MD. Scribe Attestation: Desi Watts, crispined for Dr. Quyen Rivera MD. on 12/02/18 at 1837. Status of Scribe Document: Ready
[2018-12-02 17:20] LABS: ABS Eosinophils 0.1 10^3/ul (0-0.6); ABS Lymphocytes 1.2 10^3/ul (1.0-4.8); ABS Monocytes 0.6 10^3/ul (0-0.8); ABS Neutrophils 5.3 10^3/ul (1.5-7.7); Hematocrit 31 % (35-47); Hemoglobin 10.3 g/dL (12.0-16.0); Lymphocyte % 16.3 %; Mean Corpuscular HGB Conc 34 g/dL (31-36); Mean Corpuscular Hemoglobin 29 pg (27-31); Mean Corpuscular Volume 86 fL (80-97); Mean Platelet Volume 8.1 fL (7.4-10.4); Platelet Count 205 10^3/uL (150-450); Red Blood Count 3.56 10^6 /uL (3.70-4.87); Red Cell Distribution Width 14 % (10-15); White Blood Count 7.1 10^3/uL (3.5-10.8)
[2018-12-02 17:37] LABS: Albumin 3.5 g/dL (3.2-5.2); Albumin/Globulin Ratio 1.2 (1-3); BUN/Creatinine Ratio 11.5 (8-20); C Reactive Protein 1.94 mg/L (<8.01); Calcium 9.2 mg/dL (8.6-10.3); EGFR African American 162.4 (>60); EGFR Non-African American 134.2 (>60); Potassium 3.7 mmol/L (3.5-5.0); Total Bilirubin 0.3 mg/dL (0.2-1.0); Total Protein 6.5 g/dL (6.4-8.9)
[2018-12-02 18:06] LABS: Lithium 0.12 mmol/L (0.6-1.2)
[2018-12-02 19:53] VITALS: BP 119/79
== END | disposition home or self-care (01) ==
LOC: ED 13:43
DX: L30.9 Dermatitis, unspecified (principal); F32.9 Major depressive disorder, single episode, unspecified; F43.10 Post-traumatic stress disorder, unspecified; Z79.899 Other long term (current) drug therapy; O26.892 Other specified pregnancy related conditions, second trimester; Z3A.22 22 weeks gestation of pregnancy
CPT/HCPCS: 36415; 80053; 80178; 85025; 86140; 86617; 86618; 99283; J7512

== ENCOUNTER 2019-02-13 18:03 | Emergency (ER) | payer OTHER, MEDICAID ==
--- OUTSIDE RECORDS SUMMARY | 2019-02-13 18:22 | XMS REPORT | Continuity of Care Document ---
:1985 External Reference #:[id number] Author Name Nadia Galdamez M.D. (transmitted by agent of provider Faustina Gil) Address 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 Onset: 10/04/2011 Severe depressed bipolar I disorder with Nadia Galdamez M.D. 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 Onset: 06/30 disorder Social History Type Date Description Comments Sex Unknown ETOH Use Denies alcohol use Tobacco Use Start: Unknown Patient has never smoked Smoking Status Reviewed: 12/24/18 Patient has never smoked Allergies, Adverse Reactions, Alerts Active Allergies Reaction Severity Comments Date Dogs Itching 02/13/2012 lobster swelling 02/13/2012 Medications Active Medications SIG Qnty Indications Ordering Provider Date Latuda 1 by mouth every Nadia Galdamez, 10/02/2018 40mg Tablets day M.D. [place] 3tabs daily Unknown 300mg Fish Oil Concentrate 2 by mouth every Unknown day 300mg Capsules Vitamin 1 by mouth every Unknown day Tablets Folic Acid 1 by mouth Unknown 400mcg everyday Tablets Immunizations CPT Code Status Date Vaccine Lot # [id number] Given 07/26/2012 Tdap - Tetanus/Diptheria/Acellular Pertussis [id number] Given 04/19/2012 Fluvirin Im 3Yrs And Older [id number] Refused 02/12/2015 Influenza Virus Vaccine, Quadrivalent, Split, Preservative Free [id number] Refused 02/11/2014 Influenza Virus Vaccine, Quadrivalent, Split, Preservative Free [id number] Refused 02/11/2014 Flu Vaccine Split Virus Preservative Free For Indiv 3Yr Older Vital Signs Date Vital Result Comment 12/24/2018 11:52am Height 62 inches 5'2" Weight 182.00 lb Heart Rate 89 /min BP Systolic Sitting 112 mmHg BP Diastolic Sitting 73 mmHg O2 % BldC Oximetry 99 % BMI (Body Mass Index) 33.3 kg/m2 10/02/2018 9:04am Height 62 inches 5'2" Weight 172.00 lb Heart Rate 92 /min BP Systolic Sitting 111 mmHg BP Diastolic Sitting 69 mmHg O2 % BldC Oximetry 100 % BMI (Body Mass Index) 31.5 kg/m2 Results Test Date Facility Test Result H/L Range Note CBC Auto 12/02/2018 [facility] White Blood 7.1 10^3/uL Normal 3.5-10.[address] [place] [address] [phone] Red Blood Count 3.56 10^6/uL Low 3.70-4.87 Hemoglobin 10.3 g/dL Low 12.0-16.0 Hematocrit 31 % Low 35-47 Mean Corpuscular Volume 86 fL Normal 80-97 Mean Corpuscular Hemoglobin 29 pg Normal 27-31 Mean Corpuscular HGB Conc 34 g/dL Normal 31-36 Red Cell Distribution Width 14 % Normal 10-15 Platelet Count 205 10^3/uL Normal 150-450 Mean Platelet Volume 8.1 fL Normal 7.4-10.4 Abs Neutrophils 5.3 10^3/uL Normal 1.5-7.7 Abs Lymphocytes 1.2 10^3/uL Normal 1.0-4.8 Abs Monocytes 0.6 10^3/uL Normal 0-0.8 Abs Eosinophils 0.1 10^3/uL Normal 0-0.6 Abs Basophils 0.0 10^3/uL Normal 0-0.2 Abs Nucleated RBC 0.0 10^3/uL Granulocyte % 74.1 % Lymphocyte % 16.3 % Monocyte % 8.0 % Eosinophil % 1.0 % Basophil % 0.6 % Nucleated Red Blood Cells % 0.0 Comp Metabolic 12/02/2018 [facility] Sodium 137 mmol/L Normal 135-145 Panel [address] [place] [address] [phone] Potassium 3.7 mmol/L Normal 3.5-5.0 Chloride 111 mmol/L Normal 101-111 Co2 Carbon Dioxide 20 mmol/L Low 22-32 Anion Gap 6 mmol/L Normal 2-11 Glucose 98 mg/dL Normal 70-100 Blood Urea Nitrogen 6 mg/dL Normal 6-24 Creatinine 0.52 mg/dL Normal 0.51-0.95 BUN/Creatinine Ratio 11.5 Normal 8-20 Calcium 9.2 mg/dL Normal 8.6-10.3 Total Protein 6.5 g/dL Normal 6.4-8.9 Albumin 3.5 g/dL Normal 3.2-5.2 Globulin 3.0 g/dL Normal 2-4 Albumin/Globulin Ratio 1.2 Normal 1-3 Total Bilirubin 0.30 mg/dL Normal 0.2-1.0 Alkaline Phosphatase 47 U/L Normal 34-104 Alt 11 U/L Normal 7-52 Ast 15 U/L Normal 13-39 Egfr Non- 134.2 >60 Egfr 162.4 >60 1 Laboratory test 12/02/2018 [facility] C Reactive 1.94 mg/L Normal <8.[address] [facility] [place] [address] [phone] [place]ona 0.12 mmol/L Low 0.6-1.2 Lyme Screen W/ Reflex To WB Positive Abnormal Negative 2 Lyme Disease AB 12/02/2018 [facility] IgG Immunoblot Negative Negative Immunoblot WB [address] [place] [address] [phone] IgG detected against None kDa IgM Immunoblot Uninterpretable Abnormal Negative 3 Lyme Disease Interpretation See Comment 4 1 Because ethnic data is not always readily available, this report includes an eGFR for both -Americans and non- Americans. The National Kidney Disease Education Program (NKDEP) does not endorse the use of the MDRD equation for patients that are not between the ages of 18 and 70, are , have extremes of body size, muscle mass, or nutritional status, or are non- or non-. According to the National Kidney Foundation, irrespective of diagnosis, the stage of the disease is based on the level of kidney function: Stage Description GFR(mL/min/1.73 m(2)) 1 Kidney damage with normal or decreased GFR 90 2 Kidney damage with mild decrease in GFR 60-89 3 Moderate decrease in GFR 30-59 4 Severe decrease in GFR 15-29 5 Kidney failure <15 (or dialysis) 2 Sent to reference laboratory for confirmatory testing. 3 Immunoblot invalid due to blurring or indistinct reactivity. 4 Due to an invalid Lyme IgM immunoblot, an interpretation cannot be provided. Please submit a new specimen. ADDITIONAL INFORMATION Per CDC criteria, the Lyme IgG Immunoblot is interpreted as positive if IgG-class antibodies are detected to >=5 B. burgdorferi proteins, and the Lyme IgM Immunoblot is interpreted as positive if IgM-class antibodies are detected to >=2 B. burgdorferi proteins. Immunoblot patterns not meeting these criteria should not be interpreted as positive. Epitopes from certain B. burgdorferi proteins (e.g., p41) are conserved across other bacteria, which may lead to the detection of IgM- and/or IgG-class antibodies on the Lyme disease immunoblots in patients without Lyme disease. Immunoblot should only be ordered on specimens that are positive or equivocal by a FDA-licensed Lyme disease antibody screening test (e.g., EIA). Results of the Lyme IgM immunoblot should not be considered in patients with >= 30 days of symptoms. Test Performed by: [address] [address] Procedures Description No Information Available Medical Devices Description No Information Available Encounters Type Date Location Provider Dx Diagnosis Office Visit 10/02/2018 Case Manager Internal Nadia Galdamez, S80.862A Insect bite 9:10a Medicine - Everob Swathi (nonvenomous), left lower leg, initial encounter Z3A.13 13 weeks gestation of R51 Headache Assessments Date Code Description Provider 12/24/2018 S80.861A Insect bite (nonvenomous), right lower leg, Nadia Galdamez M.D. initial encounter 12/24/2018 R21 Rash and other nonspecific skin eruption Nadia Galdamez M.D. 10/02/2018 S80.862A Insect bite (nonvenomous), left lower leg, Nadia Galdamez M.D. initial encounter 10/02/2018 Z3A.13 13 weeks gestation of Nadia Galdamez M.D. 10/02/2018 R51 Headache Nadia Galdamez M.D. Plan of Treatment 12/24/2018 - Nadia Galdamez M.D.S80.861A Insect bite (nonvenomous), right lower leg, initial [id number] Rash and other nonspecific skin eruptionComments :Do not use the new soap, avoid itching, , take nunu once a day, you can apply cortizone and calamaine lotion for elief Functional Status Description No Information Available Mental Status Description No Information Available Referrals Description No Information Available
--- NOTE | 2019-02-13 19:33 | ED ---
- HPI Summary HPI Summary: Pt is a 33 y/o F presenting to the ED with a chief complaint of abdominal cramping in . She is 8 months into her first , due on 04/05/19. Today, she had cramping in her lower abdomen radiating to her back intermittently throughout the day. She denies vaginal discharge or bleeding. She still feels movement. Dr. Dye is her BIAS MACHINE OPERATOR HELPER. She notes she slept on her side last night, which may have aggravated it. - History of Current Complaint Chief Complaint: EDOBProblems Stated Complaint: 8 MONTHS PREG/CRAMPINGAND BACK PAIN PER PT Time Seen by Provider: 02/13/19 19:01 Hx Obtained From: Patient Chief Complaint: Pain Onset/Duration: Started Hours Ago, Still Present Timing: Intermittent, Lasting Hours Severity: Mild Current Severity: Mild Pain Intensity: 2 Location of Pain: Radiates to: - back, Suprapubic Character: Cramping Associated Signs and Symptoms: Positive: Back Pain. Negative: Vaginal Bleeding or Discharge - Assessment Hx Now: Yes Expected Date of Delivery: 04/05/19 Hx : 1 Hx Para: 0 Vaginal Bleeding Amount: None - Additional Pertinent History Primary Care Physician: [id number] - Allergies/Home Medications Allergies/Adverse Reactions: Allergies Allergy/AdvReac Type Severity Reaction Status Date / Time No Known Allergies Allergy Verified 12/02/18 13:49 PMH/Surg Hx/FS Hx/Imm Hx Previously Healthy: Yes Endocrine/Hematology History: Denies: Hx Anticoagulant Therapy, Hx Diabetes, Hx Thyroid Disease Cardiovascular History: Denies: Hx Hypertension Respiratory History: Denies: Hx Asthma, Hx Chronic Obstructive Pulmonary Disease (COPD) GI History: Denies: Hx Ulcer Musculoskeletal History: Denies: Hx Arthritis Neurological History: Reports: Hx Migraine Denies: Hx Dementia, Hx Developmental Delay, Hx Headaches, Hx Seizures, Hx Spinal Cord Injury, Hx Transient Ischemic Attacks (TIA), Other Neuro Impairments /Disorders Psychiatric History: Reports: Hx Depression, Hx Post Traumatic Stress Disorder, Hx Inpatient Treatment, Hx Community Mental Health Tx, Hx Bipolar Disorder, Hx Suicide Attempt, Hx of Violent Episodes Against Others Denies: Hx Anxiety, Hx Attention Deficit Hyperactivity Disorder, Hx Eating Disorder, Hx Panic Disorder, Hx Schizophrenia, Hx Substance Abuse, Other Psychiatric Issues/Disorders - Cancer History Cancer Type, Location and Year: tumor removed R breast benign Hx Chemotherapy: No Hx Radiation Therapy: No - Surgical History Surgery Procedure, Year, and Place: Tumor removed from right breast - benign- 2011 Hx Anesthesia Reactions: No - Immunization History Date of Tetanus Vaccine: unknown Infectious Disease History: No Infectious Disease History: Denies: Hx Clostridium Difficile, Hx Hepatitis, Hx Human Immunodeficiency Virus (HIV), Hx of Known/Suspected MRSA, Hx Shingles, Hx Tuberculosis, Hx Known/ Suspected VRE, Hx Known/Suspected VRSA, History Other Infectious Disease, Traveled Outside the [place] in Last 30 Days - Family History Known Family History: Positive: Other - Unknown if preeclampsia Negative: Hypertension Family History: FHx of family psychotic disorders. No FHx of family schizophrenia. No FHx of mood disorders. No FHx of bipolar disorder. No FHx of anxiety disorder. No FHx of depression. No FHx of Family Depression. No FHx of alcohol abuse - Social History Alcohol Use: None Hx Substance Use: No Substance Use Type: Reports: None Hx Tobacco Use: No Smoking Status (MU): Never Smoked Tobacco Review of Systems Positive: Abdominal Pain Negative: discharge - vaginal, other - vaginal bleeding Positive: Myalgia - back pain All Other Systems Reviewed And Are Negative: Yes Physical Exam - Summary Physical Exam Summary: Constitutional: Well-developed, Well-nourished, Alert. (-) Distressed Skin: Warm, Dry HENT: Normocephalic; Atraumatic Eyes: Conjunctiva normal Neck: Musculoskeletal ROM normal neck. (-) JVD, (-) Stridor, (-) Tracheal deviation Cardio: Rhythm regular, rate normal, Heart sounds normal; Intact distal pulses; Radial pulses are 2+ and symmetric. (-) Murmur Pulmonary/Chest wall: Effort normal. (-) Respiratory distress, (-) Wheezes, (-) Rales Abd: Gravid uterus, (-) tenderness, (-) Distension, (-) Guarding, (-) Rebound Musculoskeletal: (-) Edema Lymph: (-) Cervical adenopathy Neuro: Alert, Oriented x3 Psych: Mood and affect Normal Bedside ultrasound shows movement and positive HR. - Physical Exam Triage Information Reviewed: Yes Vital Signs Reviewed: Yes Procedures - Sedation Patient Received Moderate/Deep Sedation with Procedure: No Diagnostics - Vital Signs Vital Signs Temp Pulse Resp BP Pulse Ox 02/13/19 18:07 97 F 86 18 134/81 98 - Laboratory Lab Statement: Any lab studies that have been ordered have been reviewed, and results considered in the medical decision making process. Course/Dx - Course Course Of Treatment: Patient is here with lower abdominal cramping the setting of being . Patient does not have signs of labor. Patient did not have leakage of fluid, vaginal discharge, change in movement. Bedside ultrasound showed positive heart rate. Patient had a UA sent here. Patient was transferred to the OB floor after talking to BIAS MACHINE OPERATOR HELPER for NST. - Diagnoses Provider Diagnoses: Abdominal pain during - Provider Notifications Discussed Care Of Patient With: Karsten Keane JR Time Discussed With Above Provider: 19:26 Instructed by Provider To: Admit As Inpatient - in BIAS MACHINE OPERATOR HELPER Discharge ED - Sign-Out/Discharge Documenting (check all that apply): Patient Departure - to OB - Discharge Plan Condition: Stable Disposition: HOME Patient Education Materials: Abdominal Pain in (ED) Referrals: Nadia Galdamez MD [Primary Care Provider] - Additional Instructions: Please go straight to BIAS MACHINE OPERATOR HELPER to see Dr. Keane - Billing Disposition and Condition Condition: STABLE Disposition: Home - Attestation Statements Document Initiated by Scribe: Yes Documenting Scribe: Desi Mendoza Provider For Whom Scribe is Documenting (Include Credential): Robson Hill MD. Scribe Attestation: Desi Watts, crispined for Robson Hill MD. on 02/13/19 at 1947. Scribe Documentation Reviewed: Yes Provider Attestation: The documentation as recorded by the gracielaibDesi de anda accurately reflects the service I personally performed and the decisions made by Robson johnson MD. Status of Scribe Document: Viewed
[2019-02-13 19:46] LABS: Urine Appearance Cloudy; Urine Bilirubin Negative (Negative); Urine Blood Negative (Negative); Urine Color Straw; Urine Glucose Negative (Negative); Urine Ketones Negative (Negative); Urine Nitrite Negative (Negative); Urine Protein Negative (Negative); Urine Specific Gravity 1.002 (1.010-1.030); Urine Urobilinogen Negative (Negative)
[2019-02-13 19:58] VITALS: BP 121/78
== END 2019-02-13 20:00 | disposition home or self-care (01) ==
LOC: ED 18:03
DX: O26.893 Other specified pregnancy related conditions, third trimester (principal); R10.9 Unspecified abdominal pain; Z3A.00 Weeks of gestation of pregnancy not specified; F32.9 Major depressive disorder, single episode, unspecified; F43.10 Post-traumatic stress disorder, unspecified; Z79.899 Other long term (current) drug therapy
CPT/HCPCS: 81003; 99282

== ENCOUNTER 2019-04-08 09:12 | Inpatient (IN) | payer OTHER, MEDICAID ==
[2019-04-08 10:15] LABS: Urine Benzodiazepine Screen None Detected (None Detect); Urine Opiates Screen None Detected (None Detect)
[2019-04-08] MEDS ORDERED: Dinoprostone* 10 MG VAG.SUPP VAGINAL ONE (10:47)
[2019-04-08] MEDS ORDERED: Lactated Ringers 1000 ML Bag* 1,000 ML IV ONE (10:47)
[2019-04-08] MEDS ORDERED: Buffered Lidocaine 1% SYRIN* 1 ML/SYRINGE INTRADERM ONE (10:47)
[2019-04-08] MEDS ORDERED: Lactated Ringers 1000 ML Bag* 1,000 ML IV SCH (11:00)
--- NOTE | 2019-04-08 11:02 | HP ---
General Information - Reason for Visit rupture of membranes - General Information Maternal Age: 33 Grav: 1 Para: 0 SAB: 0 IEA: 0 Estimated Due Date: 04/05/19 Determined By: LMP Maternal Blood Type and Rh: O Positive - Results this Serology/RPR Result: Non-Reactive Rubella Result: Immune HBsAg Result: Negative HIV Result: Negative GBS Culture Result: Negative Past Medical History Delivery History: See Records Pertinent Past Medical History: See Records Pertinent Past Surgical History: See Records Pertinent Family History: See Records - Antepartal Records Antepartal Records: Reviewed, Complicated by: - Bipolar d/o and lithium use Review of Systems Constitutional: Comfortable CV Complaint: No Respiratory: Shortness of Breath: No Gastrointestinal: No Nausea/Vomiting Genitourinary: Leaking Fluid, No Dysuria, No Bleeding Musculoskeletal: No Complaint Neurological: No Headache Movement: Normal Exam Allergies/Adverse Reactions: Allergies No Known Allergies Allergy (Verified 04/04/19 20:39) T; 98.2 BP : 120/72 P ; 84 sat 98% Lab Values - Entire Visit: Laboratory Tests 04/08/19 04/08/19 09:35 09:35 Vag Amniotic Fld Detect Positive Urine Opiates Screen None detected Ur Barbiturates Screen None detected Ur Phencyclidine Scrn None detected Ur Amphetamines Screen None detected U Benzodiazepines Scrn None detected Urine Cocaine Screen None detected U Cannabinoids Screen None detected - Measurements Height: 5 ft 2 in Weight: 197 lb Weight in lbs: [phone] Body Mass Index (BMI): 36.0 Pre- Weight: 160 lb Weight Gained This : 37 lbs and 0 ozs - Exam Breast: Breast Exam Deferred CVA: No CVA Tenderness Extremities: No Edema Heart: Normal Rhythm/Heart Sounds HEENT: No Significant Findings Lungs: Clear Bilaterally Rectal: Rectal Exam Deferred Reflexes: DTR 2+ Thyroid: No Thyromegaly - Abdominal Exam Abdomen Exam: Non-Tender - Ultrasound/Biophysical Profile Ultrasound Status: Not Done Targeted Exam Findings Cervical Exam: Fingertip Effacement: Thick Station: Floating Presenting Part: Vertex Membrane Status: SROM Amniotic Fluid Evaluation: Clear EFM Findings - External Monitor Findings Baseline Heart Rate: 140 External Monitor Findings: Accelerations Present, No Pattern of Variable or Late Decelerations, Variability Moderate Contractions: None Assessment/Plan - Assessment Pt 33 yo with spontaneous rupture of membranes with unfavorable cervix . Reviewed options with pt and plan is to proceed with cervidil for cervical ripening. GBS negative. - Plan Plan: Induction, Cervical Ripening, Admit - Anticipate Vaginal Delivery
[2019-04-08] MEDS ORDERED: Famotidine TAB* 20 MG PO PRN (14:00)
[2019-04-09] MEDS ORDERED: Nalbuphine* 10 MG/ML 1 ML VIAL IM PRN (07:40)
[2019-04-09] MEDS ORDERED: Promethazine INJ(RESTRICTED)* 25 MG/ML 1 ML VIAL IM ONE (08:00)
[2019-04-09] MEDS ORDERED: Oxytocin in LR* 20 UNITS/1,000 ML BAG IVPB SCH (12:00)
[2019-04-09] MEDS: ValACYclovir (*) 500 MG TAB PO SCH ×2 (12:29→21:34)
[2019-04-09 12:57] LABS: ABS Eosinophils 0.1 10^3/ul (0-0.6); ABS Lymphocytes 1.2 10^3/ul (1.0-4.8); ABS Monocytes 0.8 10^3/ul (0-0.8); ABS Neutrophils 8.2 10^3/ul (1.5-7.7); Eosinophil % 0.5 %; Hematocrit 32 % (35-47); Hemoglobin 10.8 g/dL (12.0-16.0); Lymphocyte % 11.6 %; Mean Corpuscular HGB Conc 34 g/dL (31-36); Mean Corpuscular Hemoglobin 29 pg (27-31); Mean Corpuscular Volume 85 fL (80-97); Mean Platelet Volume 8.3 fL (7.4-10.4); Nucleated Red Blood Cells % 0.1; Platelet Count 272 10^3/uL (150-450); Red Blood Count 3.77 10^6 /uL (3.70-4.87); Red Cell Distribution Width 14 % (10-15); White Blood Count 10.3 10^3/uL (3.5-10.8)
[2019-04-09] MEDS ORDERED: Lurasidone(*) 40 MG TAB PO SCH (17:00)
[2019-04-09] MEDS ORDERED: Dinoprostone* 10 MG VAG.SUPP VAGINAL ONE (20:51)
[2019-04-09] MEDS ORDERED: Lithium Carbonate TAB* 300 MG PO SCH (21:00)
--- NOTE | 2019-04-09 21:22 | PN ---
Progress Note - Progress Note Date of Service: 04/09/19 Note: Pt was getting very uncomfortable with contractions while on pitocin (at 6mU). She was using nitrous oxide with some relief but was feeling exhausted and like she couldn't handle the contractions any longer. We decided to turn off the pitocin and over the next hour the contractions spaced out significantly. Pt desired nubain and phenergan to help her get some rest. She also agreed to another cervidil overnight. Will likely plan to restart pitocin in the am if nothing happens overnight. Currently no evidence of infection. Also previously discussed plan of care with pt in regards to [place]. She had discussed with her psychiatrist and the industrial analyst and the plan is to stop the [place] 24-48hrs prior to delivery, then to restart a couple days after delivery so she can breastfeed for the first few days. Then she plans to take her [place] at night and breast feed only during the day when the [place] levels would be lower. She says she has gone off her [place] in the past for short periods of time and been ok. She will continue the Latuda.
[2019-04-09] MEDS: Nalbuphine* 10 MG/ML 1 ML VIAL IV PRN (21:29)
[2019-04-09] MEDS: Promethazine INJ(RESTRICTED)* 25 MG/ML 1 ML VIAL IV PRN (21:29)
[2019-04-09] MEDS: Lurasidone(*) 40 MG TAB PO SCH (21:34)
[2019-04-10] MEDS: Promethazine INJ(RESTRICTED)* 25 MG/ML 1 ML VIAL IV PRN (04:29)
[2019-04-10] MEDS: Nalbuphine* 10 MG/ML 1 ML VIAL IV PRN (04:29)
[2019-04-10] MEDS ORDERED: Oxytocin in LR* 20 UNITS/1,000 ML BAG IVPB SCH (08:00)
[2019-04-10] MEDS: ValACYclovir (*) 500 MG TAB PO SCH ×2 (08:59→22:56)
[2019-04-10] MEDS: Lurasidone(*) 40 MG TAB PO SCH (09:00)
[2019-04-10] MEDS ORDERED: OBEPIDURAL* 250 ML EPIDURAL ONE (09:22)
[2019-04-10] MEDS ORDERED: Phenylephrine 40 MCG/ML SYRINGE IV PUSH PRN ×2 (09:58)
[2019-04-10] MEDS ORDERED: Sodium Citrate/Citric Acid* 15 ML UDC PO PRN (09:58)
[2019-04-10] MEDS ORDERED: Lactated Ringers 1000 ML Bag* 1,000 ML IV ONE (09:58)
[2019-04-10] MEDS ORDERED: Famotidine TAB* 20 MG PO PRN (09:58)
[2019-04-10] MEDS ORDERED: OBEPIDURAL* 250 ML EPIDURAL SCH (10:00)
[2019-04-10] MEDS ORDERED: Lactated Ringers 1000 ML Bag* 1,000 ML IV SCH (10:00)
[2019-04-10] MEDS ORDERED: Acetaminophen TAB* 325 MG ONE (17:46)
[2019-04-10] MEDS ORDERED: Bupivacaine 0.25% SDV PF* 10 ML VIAL INJ ONE (21:56)
[2019-04-10] MEDS ORDERED: ceFOXitin 2 GM IVPREMIX* 2 GM/50 ML BAG ONE (22:05)
[2019-04-10] MEDS ORDERED: Morphine PF AMP (0.5MG/ML)* 5 MG/10 ML AMP ONE (23:55)
[2019-04-10] MEDS ORDERED: OXYTOCIN* 10 UNITS/ML 1 ML VIAL ONE (23:58)
[2019-04-11] MEDS ORDERED: Bupivacaine 0.5% SDV PF* 30ML VIAL ONE
[2019-04-11] MEDS ORDERED: Phenylephrine 40 MCG/ML SYRINGE ONE (00:34)
[2019-04-11] MEDS ORDERED: EPHEDrine (Pressors)* 50 MG/ML VIAL ONE (00:39)
[2019-04-11] MEDS ORDERED: Scopolamine 1.5 mg* PATCH TRANSDERM PRN (01:35)
[2019-04-11] MEDS ORDERED: HYDROcodone/ACETAMIN 5-325 MG* 1 TAB PO PRN ×2 (01:35)
[2019-04-11] MEDS ORDERED: Ondansetron INJ* 2 MG/ML VIAL IV PRN (01:35)
[2019-04-11] MEDS ORDERED: Naloxone* 0.4 MG/ML 1 ML VIAL IV PRN ×2 (01:35)
[2019-04-11] MEDS ORDERED: diPHENhydraMINE IV* 50 MG/ML 1 ml VIAL (BENADRYL) IV PRN (01:35)
[2019-04-11] MEDS ORDERED: fentaNYL* 50 MCG/ML 2 ML VIAL (100 MCG VIAL) IV PRN (01:35)
[2019-04-11] MEDS ORDERED: DiMENhydriNATE IV* 50 MG/ML VIAL IV PUSH PRN (01:35)
[2019-04-11] MEDS ORDERED: Dibucaine 1% 28.35 GM TUBE PR PRN (02:16)
[2019-04-11] MEDS ORDERED: Witch Hazel PAD* JAR TOPICAL PRN (02:16)
[2019-04-11] MEDS ORDERED: Glycerin ADULT SUPP PR PRN (02:16)
[2019-04-11] MEDS ORDERED: Zolpidem TAB* 5 MG PO PRN (02:16)
[2019-04-11] MEDS ORDERED: Oxytocin in LR* 20 UNITS/1,000 ML BAG IVPB SCH (03:00)
[2019-04-11] MEDS ORDERED: Lactated Ringers 1000 ML Bag* 1,000 ML IV SCH (03:00)
[2019-04-11] MEDS: Acetaminophen TAB* 325 MG PO SCH ×4 (03:56→14:59)
[2019-04-11 08:46] LABS: ABS Lymphocytes 0.6 10^3/ul (1.0-4.8); ABS Monocytes 0.9 10^3/ul (0-0.8); ABS Neutrophils 12.6 10^3/ul (1.5-7.7); Hematocrit 24 % (35-47); Hemoglobin 8.2 g/dL (12.0-16.0); Lymphocyte % 4.1 %; Mean Corpuscular HGB Conc 34 g/dL (31-36); Mean Corpuscular Hemoglobin 28 pg (27-31); Mean Corpuscular Volume 84 fL (80-97); Mean Platelet Volume 7.7 fL (7.4-10.4); Platelet Count 207 10^3/uL (150-450); Red Blood Count 2.89 10^6 /uL (3.70-4.87); Red Cell Distribution Width 14 % (10-15); White Blood Count 14.1 10^3/uL (3.5-10.8)
[2019-04-11] MEDS: Lurasidone(*) 40 MG TAB PO SCH (08:57)
[2019-04-11] MEDS: Simethicone TAB* 80 MG TAB.CHEW PO SCH ×3 (08:57→19:40)
[2019-04-11] MEDS: Prenatal Vitamin TAB PO SCH (08:57)
[2019-04-11] MEDS: Docusate CAP* 100 MG PO SCH ×2 (08:57→14:59)
[2019-04-11] MEDS: Ferrous Gluconate TAB* 324 MG TAB PO SCH ×2 (11:03→21:15)
[2019-04-11] MEDS: ValACYclovir (*) 500 MG TAB PO SCH (11:03)
[2019-04-11] MEDS ORDERED: oxyCODONE/Acetamin 5/325 MG* TAB PO PRN (16:30)
[2019-04-11] MEDS ORDERED: Ibuprofen TAB* 600 MG PO PRN (16:30)
[2019-04-11] MEDS ORDERED: Acetaminophen TAB* 325 MG ONE (19:37)
[2019-04-11] MEDS: Acetaminophen TAB* 325 MG PO PRN (19:40)
[2019-04-11] MEDS: oxyCODONE/Acetamin 5/325 MG* TAB PO PRN (23:43)
[2019-04-12] MEDS: Docusate CAP* 100 MG PO SCH ×4 (01:26→21:52)
--- NOTE | 2019-04-12 03:51 | OP ---
DATE OF OPERATION: 04/11/19 - ROOM #101 DATE OF : 81 SURGEON: Dr. Szymanski. SEISMOGRAPH CHIEF: Sigrid Cox CNM PRE-OP DIAGNOSIS: Arrest of dilation. POST-OP DIAGNOSIS: Arrest of dilation plus macrosomia. OPERATIVE PROCEDURE: Low transverse section. ESTIMATED BLOOD LOSS: 600 cc. COMPLICATIONS: None. FINDINGS: This is a 33-year-old at 40 plus weeks who presented with spontaneous rupture of membranes on Monday and was given cervical ripening agents until Monday. On Monday, she was reruptured and started on Pitocin progressed up to 8 cm on Pitocin and received an epidural but did not progress beyond 8 cm despite adequate labor. At the time of , she had a viable male. Apgars 9 and 9, weight was 9 pounds 1 ounce. Normal appearing uterus, fallopian tubes and ovaries. DESCRIPTION OF PROCEDURE: The patient identified, procedure identified as low transverse section. The patient was taken to the operating room, prepped and draped in the usual fashion. In left lateral recumbent position under spinal anesthesia, a Pfannenstiel incision made in the abdomen, carried down through fat, fascia, and peritoneum. A transverse incision was made in the low uterine segment and extended laterally using blunt dissection. The infant was delivered through the incision with ease. The cord was doubly clamped and cut. The was handed to the waiting manager resource. Cord blood was obtained. Placenta delivered spontaneously. The uterus was wiped out with a wet lap sponge. The uterine incision was then closed using 0 Polysorb in a running fashion. A second layer was used to imbricate the first layer. Good hemostasis was verified. The uterus was placed back into the abdominal cavity. The gutters were wiped out with a wet lap sponge. The peritoneum was then closed using 3-0 Polysorb in a running fashion. Good hemostasis achieved in the subrectus layers and the fascia was closed using 0 Polysorb in a running fashion. Hemostasis was achieved in the subcu. Copious irrigation was utilized and suctioned out. The skin was closed with 4-0 Monocryl in a subcuticular fashion. All sponge and instrument counts were correct. The patient returned to the recovery room in stable condition. [id number]/[facility] #: [id number] [facility]
[2019-04-12] MEDS: oxyCODONE/Acetamin 5/325 MG* TAB PO PRN (04:10)
[2019-04-12 05:55] LABS: Hematocrit 20 % (35-47); Mean Corpuscular HGB Conc 34 g/dL (31-36); Mean Corpuscular Hemoglobin 29 pg (27-31); Mean Corpuscular Volume 85 fL (80-97); Mean Platelet Volume 8.1 fL (7.4-10.4); Platelet Count 195 10^3/uL (150-450); Red Blood Count 2.42 10^6 /uL (3.70-4.87); Red Cell Distribution Width 15 % (10-15); White Blood Count 12.6 10^3/uL (3.5-10.8)
[2019-04-12] MEDS ORDERED: oxyCODONE TAB* 5 MG TAB PO PRN (07:36)
[2019-04-12] MEDS ORDERED: diPHENhydraMINE PO* 25 MG PO ONE (07:37)
[2019-04-12] MEDS: oxyCODONE TAB* 5 MG TAB PO PRN ×3 (08:29→23:05)
[2019-04-12] MEDS: Acetaminophen TAB* 325 MG PO PRN ×2 (08:29→16:03)
[2019-04-12] MEDS: Ferrous Gluconate TAB* 324 MG TAB PO SCH ×2 (08:59→21:52)
[2019-04-12] MEDS: Lurasidone(*) 40 MG TAB PO SCH ×2 (09:00→11:20)
[2019-04-12] MEDS: Simethicone TAB* 80 MG TAB.CHEW PO SCH ×5 (09:00→21:52)
--- NOTE | 2019-04-12 13:15 | PN ---
Progress Note - Progress Note Date of Service: 04/12/19 Note: Progress Note S: POD#1 s/p pLTCS for arrest of dilation. Pt has remained slightly tachycardic since delivery. She admits to dizziness with ambulation. Postoperative Hct was 24, repeat Hct this Am was found to be 20. Otherwise pt doing OK. Tolerating regular diet. Voiding spontaneously. Pain appropriately controlled with PO pain medications. O: AVSS, slight tachycardia, afebrile CV: slight tachy with regular rhythm Pulm: non-labored respirations Abd: soft, nd, appropriately ttp, no rebound, no guarding Incision: c/d/i with sutures and steris A/P: Para 1 POD #1 s/p pLTCS for arrest of dilation, post operative course complicated by symptomatic anemia: - Symptomatic anemia - low suspicion that pt has continued bleeding, abdominal exam is benign. Consented for 2 U PRBC transfusion. Risks versus benefits versus alternative discussed. Reviewed risk of infection transmission secondary to transfusion reviewed. Written consent obtained. OK for tylenol and benadryl with transfusion. continue to monitor closely. repeat CBC 04/13. - Pain appropriately controlled with PO pain medications, continue - Bipolar d/o - pt doing well. Holding lithium at this time so she may breastfeed. Continuing Latuda. She is discussing with her psychiatrist and the pediatricians how and when she may be able to re-start her lithium. discussed with patient that my recommendation is that she not breast feed if she is taking lithium. - progressing appropriately otherwise - RH+/Rubella Immune - continue routine post operative care DO JEN Alvarez
[2019-04-12] MEDS: Prenatal Vitamin TAB PO SCH (16:03)
--- NOTE | 2019-04-12 18:51 | PN ---
Progress Note - Progress Note Date of Service: 04/12/19 Note: Pt tolerated transfusion of 2 Units PRBC without complication. Remains with slight tachycardia, but normotensive BP's and excellent UOP, low suspicion for internal bleeding. Pt's Hct on admission was 32 --> c/s performed 36 hours into induction, Hct at 8 hours post-op was 24 --> repeat H/H at ~30 hours post -op 12/01; suspect dilutional element to total Hct change from admission. Re-check CBC 04/13 AM. Abdominal exam exhibits soft distension, appropriately tender to palpation, no rebound, no guarding. BLLE are warm, nttp, negative homans. Pt has been minimally ambulatory since delivery, encouraged ambulation, encouraged incentive spirometry. Pt plans to re-start [place] 1050mg tonight. This plan has been reviewed with pt and her Psychiatrist and Vehicle Operator Technician. Vehicle Operator Technician has reviewed this plan with specialty team in [place] and their plan is have mother take [place] dose at night and not breast feed overnight, then resume in the AM. Peds will be following lithium levels in baby also. DO JEN Alvarez
[2019-04-12] MEDS: Lithium Carbonate TAB* 300 MG PO SCH (23:06)
[2019-04-13] MEDS: oxyCODONE TAB* 5 MG TAB PO PRN ×3 (04:32→17:54)
[2019-04-13] MEDS: Acetaminophen TAB* 325 MG PO PRN ×3 (07:31→22:10)
[2019-04-13] MEDS: Ferrous Gluconate TAB* 324 MG TAB PO SCH ×2 (08:23→20:50)
[2019-04-13] MEDS: Prenatal Vitamin TAB PO SCH (08:23)
[2019-04-13] MEDS: Simethicone TAB* 80 MG TAB.CHEW PO SCH ×4 (08:23→20:50)
[2019-04-13] MEDS: Docusate CAP* 100 MG PO SCH ×3 (08:25→20:51)
[2019-04-13 08:52] LABS: Hematocrit 31 % (35-47); Hemoglobin 10.4 g/dL (12.0-16.0); Mean Corpuscular HGB Conc 33 g/dL (31-36); Mean Corpuscular Hemoglobin 29 pg (27-31); Mean Corpuscular Volume 87 fL (80-97); Mean Platelet Volume 7.9 fL (7.4-10.4); Platelet Count 342 10^3/uL (150-450); Red Blood Count 3.55 10^6 /uL (3.70-4.87); Red Cell Distribution Width 15 % (10-15); White Blood Count 16.8 10^3/uL (3.5-10.8)
[2019-04-13] MEDS ORDERED: Lurasidone(*) 40 MG TAB PO SCH (21:00)
[2019-04-13] MEDS: Lithium Carbonate TAB* 300 MG PO SCH (22:28)
[2019-04-14] MEDS ORDERED: Scopolamine PATCH Remove* 1 NOTE MISC PATCH OFF SCH (02:00)
[2019-04-14] MEDS: oxyCODONE TAB* 5 MG TAB PO PRN ×2 (02:21→08:18)
[2019-04-14 07:39] VITALS: BP 131/75
[2019-04-14] MEDS: Simethicone TAB* 80 MG TAB.CHEW PO SCH ×2 (08:18→11:23)
[2019-04-14] MEDS: Docusate CAP* 100 MG PO SCH (08:19)
[2019-04-14] MEDS: Prenatal Vitamin TAB PO SCH (08:19)
[2019-04-14] MEDS: Acetaminophen TAB* 325 MG PO PRN (11:23)
== END 2019-04-14 12:26 | disposition home or self-care (01) | DRG 788 ==
LOC: MCHOBOUT 09:12 → MCHOB 10:20
PROVIDERS: ADMIT Obstetrics & Gynecology; ATTEND Obstetrics & Gynecology
PROC: 3E033VJ Introduction of Other Hormone into Peripheral Vein, Percutaneous Approach (ICD-10-PCS; 2019-04-11)
PROC: 10907ZC Drainage of Amniotic Fluid, Therapeutic from Products of Conception, Via Natural or Artificial Opening (ICD-10-PCS; 2019-04-11)
PROC: 10D00Z1 Extraction of Products of Conception, Low, Open Approach (ICD-10-PCS; principal; 2019-04-11 00:25)
PROC: 30233N1 Transfusion of Nonautologous Red Blood Cells into Peripheral Vein, Percutaneous Approach (ICD-10-PCS; 2019-04-12)
DX: O99.344 Other mental disorders complicating childbirth (principal); F31.9 Bipolar disorder, unspecified; O48.0 Post-term pregnancy; O62.0 Primary inadequate contractions; O36.60X0 Maternal care for excessive fetal growth, unspecified trimester, not applicable or unspecified; O90.81 Anemia of the puerperium; D64.89 Other specified anemias; Z3A.40 40 weeks gestation of pregnancy; Z37.0 Single live birth
CPT/HCPCS: 36415; 80307; 84112; 85025; 85027; 86850; 86900; 86901; 86922; A9270-GY; J0694; J2300; J2550; J2590; J3490; P9040

== ENCOUNTER 2019-09-27 17:26 | Observation (INO) ==
[2019-09-27 18:27] LABS: ABS Eosinophils 0.2 10^3/ul (0-0.6); ABS Lymphocytes 1.8 10^3/ul (1.0-4.8); ABS Monocytes 0.6 10^3/ul (0-0.8); Eosinophil % 3.1 %; Hematocrit 35 % (35-47); Hemoglobin 11.4 g/dL (12.0-16.0); Lymphocyte % 23.1 %; Mean Corpuscular HGB Conc 33 g/dL (31-36); Mean Corpuscular Hemoglobin 27 pg (27-31); Mean Corpuscular Volume 83 fL (80-97); Mean Platelet Volume 8.5 fL (7.4-10.4); Nucleated Red Blood Cells % 0.1; Platelet Count 264 10^3/uL (150-450); Red Blood Count 4.18 10^6 /uL (3.70-4.87); Red Cell Distribution Width 15 % (10-15); White Blood Count 7.7 10^3/uL (3.5-10.8)
[2019-09-27 18:32] LABS: INR 1.02 (0.82-1.09)
[2019-09-27 19:29] LABS: Albumin 4.2 g/dL (3.2-5.2); Albumin/Globulin Ratio 1.4 (1-3); BUN/Creatinine Ratio 8.7 (8-20); Calcium 9.9 mg/dL (8.6-10.3); EGFR African American 73.4 (>60); EGFR Non-African American 60.6 (>60); Globulin 3.1 g/dL (2-4); Potassium 3.5 mmol/L (3.5-5.0); Total Bilirubin 0.5 mg/dL (0.2-1.0); Total Protein 7.3 g/dL (6.4-8.9)
[2019-09-27] MEDS ORDERED: Iohexol 350 (CONTRAST) 500 ML MDV IV ONE (19:50)
[2019-09-27] MEDS ORDERED: Lactated Ringers 1000 ml BAG 1,000 ML IV SCH (20:00)
[2019-09-27] MEDS ORDERED: Al Hydrox/Mg Hydrox/Simet LIQ 30 ML UDC PO PRN (20:48)
[2019-09-27] MEDS ORDERED: Ondansetron 4 mg VIAL 2 MG/ML 2 ml VIAL IV PRN (20:48)
[2019-09-27] MEDS ORDERED: Lithium Carb ER 300 mg TAB(NF) PO SCH (21:00)
[2019-09-27 21:17] LABS: Alcohol, S < 10 mg/dL (<10)
[2019-09-27 21:48] LABS: Lithium 0.55 mmol/L (0.6-1.2)
[2019-09-27] MEDS: Enoxaparin 80 MG/0.8 ML SYR(*) SUBCUT SCH (23:50)
[2019-09-28] MEDS ORDERED: OMEGA-3 FATTY ACID 1000 mg(NF) PO SCH (09:00)
[2019-09-28] MEDS: Enoxaparin 80 MG/0.8 ML SYR(*) SUBCUT SCH (10:05)
[2019-09-28] MEDS ORDERED: Iohexol 350 (CONTRAST) 500 ML MDV IV ONE (11:00)
[2019-09-28 13:41] VITALS: BP 128/84
[2019-09-28] MEDS ORDERED: Nitroglycerin 0.2 mg/hr PATCH (5 mg) TRANSDERM SCH (14:00)
[2019-09-28] MEDS ORDERED: Nitro Patch/OINT Remove PATCH PATCH OFF SCH (21:00)
== END 2019-09-28 15:10 | disposition home or self-care (01) ==
LOC: MEDTELE 17:26 → ED 17:26 → MEDTELE 21:34
PROVIDERS: ADMIT Pediatrics; ATTEND Internal Medicine